=== PATIENT | male | born 1970 | race Caucasian/White ===

== ENCOUNTER 2016-11-19 11:54 | Emergency (ER) | payer OTHER ==
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
--- NOTE | 2016-11-19 12:59 | DIAGNOSTIC IMAGING REPORT ---
PROCEDURE: XR HAND 3 OR 4 VIEWS - RIGHT INDICATION: TRAUMA/INJURY TECHNIQUE: Four views. COMPARISON: None. FINDINGS: There is a comminuted fracture the right second metacarpal neck with mild dorsal apical angulation and volar displacement. The rest of the osseous structures and joint spaces are normal. IMPRESSION: 1. Mildly displaced and angulated fracture the right second metacarpal neck. 2. Otherwise negative right hand.
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
--- NOTE | 2016-11-19 13:14 | DIAGNOSTIC IMAGING REPORT ---
PROCEDURE: CT CERVICAL SPINE W/O CONTRAST INDICATION: TRAUMA/INJURY TECHNIQUE: Noncontrast axial images with sagittal and coronal reformations. COMPARISON: None. FINDINGS: Osseous structures and disc spaces are normal. No evidence of an acute process or fracture. Alignment is normal. There are mild calcifications of the carotid bifurcations and cavernous internal carotid arteries. IMPRESSION: 1. Negative CT cervical spine. No evidence of an acute process or fracture. 2. Carotid vascular calcifications (incidental finding). 3. Findings discussed with LARS Rehman. All CT scans at this facility use dose modulation, iterative reconstruction, and/or weight-based dosing when appropriate to reduce radiation dose to as low as reasonably achievable.
--- NOTE | 2016-11-19 14:43 | ED ORDER SUMMARY ---
..... Patient: DEE MORALES OrderSheet [facility] VisitID: [id number] [place] [address] 45y, M Registration Date/Time: 11/19/2016 ORDER SHEET Weight: 70.3 kg (stated) Allergies: No Known Drug Allergy GENERAL ORDERS: CT Head wo Cont Urgent (12:20 11/19/2016 EKoroleva P.A.-C) (Ack 12:22 LNations ER Tech1) (13:00 LWhalen R.N.) CT Cervical Spine wo Cont Urgent (12:20 11/19/2016 EKoroleva P.A.-C) (Ack 12:22 LNations ER Tech1) (13:00 LWhalen R.N.) Shoulder 2V or more Left Urgent (12:20 11/19/2016 EKoroleva P.A.-C) (Ack 12:22 LNations ER Tech1) (13:00 LWhalen R.N.) Hand 3 or 4V Right Urgent (12:20 11/19/2016 EKoroleva P.A.-C) (Ack 12:22 LNations ER Tech1) (13:00 LWhalen R.N.) POC Glucose (13:08 11/19/2016 LNations ER Tech1 verbal order read back to EKoroleva P.A.-C) (13:08 LNations ER Tech1) Splint (UE) (Right) (colles/fiberglass) (13:17 11/19/2016 EKoroleva P.A.-C) (14:07 LWhalen R.N.) Sling - arm (LEFT) (13:17 11/19/2016 EKoroleva P.A.-C) (14:07 LWhalen R.N.) Wound Irrigation (13:17 11/19/2016 EKoroleva P.A.-C) (14:07 LWhalen R.N.) MEDICATION ORDERS: Lidocaine-Epinephrine Injection 2 % (soln) (NOW, place at bedside, with syringes & needles) (12:47 11/19/2016 EKoroleva P.A.-C) (12:56 LWhalen R.N.) Hydrocodone-APAP PO 5/325 mg (NOW, HIGH ALERT MEDICATION) (12:50 11/19/2016 Sudha Richardson) (12:59 LWhalmayur R.N.) Keflex PO 500 mg (NOW) (14:40 11/19/2016 Sudha Richardson) (14:54 LWhalmayur R.N.) IV FLUIDS: ORDER SHEET NOTES: [Electronically signed by Afsaneh Telles P.A.-C (15:05 11/19/2016)] [Electronically signed by Kedar Arango R.N. (08:27 11/20/2016)] [Electronically locked/signed by Kedar Arango R.N. (08:11/20/2016)]
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
--- NOTE | 2016-11-19 14:43 | ED ORDER SUMMARY ---
..... Patient: DEE MORALES OrderSheet [facility] VisitID: [id number] [place] [address] 45y, M Registration Date/Time: 11/19/2016 ORDER SHEET Weight: 70.3 kg (stated) Allergies: No Known Drug Allergy GENERAL ORDERS: CT Head wo Cont Urgent (12:20 11/19/2016 EKoroleva P.A.-C) (Ack 12:22 LNations ER Tech1) (13:00 LWhalen R.N.) CT Cervical Spine wo Cont Urgent (12:20 11/19/2016 EKoroleva P.A.-C) (Ack 12:22 LNations ER Tech1) (13:00 LWhalen R.N.) Shoulder 2V or more Left Urgent (12:20 11/19/2016 EKoroleva P.A.-C) (Ack 12:22 LNations ER Tech1) (13:00 LWhalen R.N.) Hand 3 or 4V Right Urgent (12:20 11/19/2016 EKoroleva P.A.-C) (Ack 12:22 LNations ER Tech1) (13:00 LWhalen R.N.) POC Glucose (13:08 11/19/2016 LNations ER Tech1 verbal order read back to EKoroleva P.A.-C) (13:08 LNations ER Tech1) Splint (UE) (Right) (colles/fiberglass) (13:17 11/19/2016 EKoroleva P.A.-C) (14:07 LWhalen R.N.) Sling - arm (LEFT) (13:17 11/19/2016 EKoroleva P.A.-C) (14:07 LWhalen R.N.) Wound Irrigation (13:17 11/19/2016 EKoroleva P.A.-C) (14:07 LWhalen R.N.) MEDICATION ORDERS: Lidocaine-Epinephrine Injection 2 % (soln) (NOW, place at bedside, with syringes & needles) (12:47 11/19/2016 EKoroleva P.A.-C) (12:56 LWhalen R.N.) Hydrocodone-APAP PO 5/325 mg (NOW, HIGH ALERT MEDICATION) (12:50 11/19/2016 Sudha Richardson) (12:59 LWhalmayur R.N.) Keflex PO 500 mg (NOW) (14:40 11/19/2016 Sudha Richardson) (14:54 LWhalmayur R.N.) IV FLUIDS: ORDER SHEET NOTES: [Electronically signed by Afsaneh Telles P.A.-C (15:05 11/19/2016)] [Electronically signed by Kedar Arango R.N. (08:27 11/20/2016)] [Electronically locked/signed by Kedar Arango R.N. (08:11/20/2016)]
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
--- NOTE | 2016-11-20 08:28 | ED MAR SUMMARY ---
..... Medication Administration Record [facility] [address] [place] [address] Patient: DEE MORALES Visit ID: [id number] 45y, M Weight: 70.3 kg Height/Length: 67 in BMI: 24.3 ALLERGIES: No Known Drug Allergy Given 12:56 11/19/2016 Kedar Arango R.N. Medication Administered: LIDOCAINE-EPINEPHRINE [INJECTION] (LIDOCAINE-EPINEPHRINE), Dose: 2 % Injectable Injection. Medication Ordered: Lidocaine-Epinephrine Injection 2 % (soln) (NOW, place at bedside, with syringes & needles). Given 12:59 11/19/2016 Kedar Arango R.N. Medication Administered: HYDROCODONE-APAP [PO] (HYDROCODONE-ACETAMINOPHEN), Dose: 1 tab 5/325 mg Tablets PO. Medication Ordered: Hydrocodone-APAP PO 5/325 mg (NOW, HIGH ALERT MEDICATION). Given 14:44 11/19/2016 Kedar Arango R.NVinicius Medication Administered: KEFLEX [PO] (CEPHALEXIN), Dose: 500 mg Tablets PO. Medication Ordered: Keflex PO 500 mg (NOW).
--- NOTE | 2016-11-20 08:28 | ED MED RECONCILIATION SUMMARY ---
Patient: DEE MORALES Medication Reconciliation Report [facility] [place] [facility] VisitID: [id number] [place] [address] 45y, M Registration Date/Time: 11/19/2016 Weight: 70.3 kg Height/Length: 67 in. BMI: 24.3 ALLERGIES: No Known Drug Allergy The patient's Home Medications are listed below: THE FOLLOWING MEDICATIONS NEED TO BE RECONCILED: Lantus Subcutaneous NovoLOG Subcutaneous The source(s) of the original Home Medication information: Not obtained. The following Medications were given to the patient in the Emergency Department: Lidocaine-Epinephrine [Injection] Injection 2 %, administered: 11/19/2016 12:56:00 PM Hydrocodone-APAP [PO] PO 1 tab, administered: 11/19/2016 12:59:00 PM Keflex [PO] PO 500 mg, administered: 11/19/2016 2:44:00 PM The following Medications were prescribed to the patient: Cephalexin 500 mg: take 1 capsule orally every 8 hours for 7 days. No refill. -- Afsaneh Telles, P.A.-C Percocet 5 mg/325 mg: take 1 tablet orally every 6 hours as needed for pain. Dispense twenty-five (25). No refill. Substitution is permissible. -- Afsaneh Telles, P.A.-C
--- NOTE | 2016-11-20 08:28 | ED MAR SUMMARY ---
..... Medication Administration Record [facility] [address] [place] [address] Patient: DEE MORALES Visit ID: [id number] 45y, M Weight: 70.3 kg Height/Length: 67 in BMI: 24.3 ALLERGIES: No Known Drug Allergy Given 12:56 11/19/2016 Kedar Arango R.N. Medication Administered: LIDOCAINE-EPINEPHRINE [INJECTION] (LIDOCAINE-EPINEPHRINE), Dose: 2 % Injectable Injection. Medication Ordered: Lidocaine-Epinephrine Injection 2 % (soln) (NOW, place at bedside, with syringes & needles). Given 12:59 11/19/2016 Kedar Arango R.N. Medication Administered: HYDROCODONE-APAP [PO] (HYDROCODONE-ACETAMINOPHEN), Dose: 1 tab 5/325 mg Tablets PO. Medication Ordered: Hydrocodone-APAP PO 5/325 mg (NOW, HIGH ALERT MEDICATION). Given 14:44 11/19/2016 Kedar Arango R.NVinicius Medication Administered: KEFLEX [PO] (CEPHALEXIN), Dose: 500 mg Tablets PO. Medication Ordered: Keflex PO 500 mg (NOW).
--- NOTE | 2016-11-20 08:28 | ED MED RECONCILIATION SUMMARY ---
Patient: DEE MORALES Medication Reconciliation Report [facility] VisitID: [id number] [place] [address] 45y, M Registration Date/Time: 11/19/2016 Weight: 70.3 kg Height/Length: 67 in. BMI: 24.3 ALLERGIES: No Known Drug Allergy The patient's Home Medications are listed below: THE FOLLOWING MEDICATIONS NEED TO BE RECONCILED: Lantus Subcutaneous NovoLOG Subcutaneous The source(s) of the original Home Medication information: Not obtained. The following Medications were given to the patient in the Emergency Department: Lidocaine-Epinephrine [Injection] Injection 2 %, administered: 11/19/2016 12:56:00 PM Hydrocodone-APAP [PO] PO 1 tab, administered: 11/19/2016 12:59:00 PM Keflex [PO] PO 500 mg, administered: 11/19/2016 2:44:00 PM The following Medications were prescribed to the patient: Cephalexin 500 mg: take 1 capsule orally every 8 hours for 7 days. No refill. -- Afsaneh Telles, P.A.-C Percocet 5 mg/325 mg: take 1 tablet orally every 6 hours as needed for pain. Dispense twenty-five (25). No refill. Substitution is permissible. -- Afsaneh Telles, P.A.-C
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
== END 2016-11-19 14:50 | disposition home or self-care (01) ==
LOC: ED SRH 11:54
DX: S62.330A Displaced fracture of neck of second metacarpal bone, right hand, initial encounter for closed fracture (principal); S01.81XA Laceration without foreign body of other part of head, initial encounter; S16.1XXA Strain of muscle, fascia and tendon at neck level, initial encounter; H73.892 Other specified disorders of tympanic membrane, left ear; S43.102A Unspecified dislocation of left acromioclavicular joint, initial encounter; S09.8XXA Other specified injuries of head, initial encounter; E11.9 Type 2 diabetes mellitus without complications; V29.9XXA Motorcycle rider (driver) (passenger) injured in unspecified traffic accident, initial encounter; B96.89 Other specified bacterial agents as the cause of diseases classified elsewhere; Y93.89 Activity, other specified